=== PATIENT | male | born 2000 | race American Indian/Alaskan Native ===

== ENCOUNTER 2020-04-27 07:42 | Inpatient (IN) | payer OTHER ==
[2020-04-27] MEDS ORDERED: Morphine 4 MG/ML Syringe IVPUSH ONE (07:49)
[2020-04-27] MEDS ORDERED: Sodium Chloride 0.9% 2.5 ML Syringe FLUSH PRN (07:49)
[2020-04-27] MEDS ORDERED: Sodium Chloride 0.9% 1,000 ML IV ONE (07:49)
[2020-04-27] MEDS ORDERED: Sodium Chloride 0.9% 10 ML Syringe FLUSH PRN (07:49)
[2020-04-27] MEDS ORDERED: Ondansetron 4 MG/2 ML SDV IVPUSH ONE (07:49)
--- NOTE | 2020-04-27 07:57 | EDM.PDOC ---
ED HPI GENERAL MEDICAL PROBLEM - General Chief Complaint: Abdominal Pain Stated Complaint: ABDOMINAL PAIN Time Seen by Provider: 04/27/20 07:43 Source of Information: Reports: Patient History Limitations: Reports: No Limitations - History of Present Illness INITIAL COMMENTS - FREE TEXT/NARRATIVE: 20-year-old male presents with abdominal pain. Abdominal pain is localized to the right lower quadrant, constant for 2 days but worsening today, nonradiating, sharp, no alleviating or exacerbating factors, associated with nausea, vomiting, worse with food. Denies fever, chills, chest pain, shortness of breath, suicidality or homicidality at this point. 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 He also overdosed on 15 tablets of anti- inflammatory medication 3 days ago, he has an appointment at [facility] today at 1 PM. He currently denies suicidal ideation. ROS: A 10-point review of systems, other than pertinent positives and negatives as stated per HPI, is otherwise negative Past medical history: No additional pertinent history Past Surgical history: No additional pertinent history Social history: No additional pertinent history Family history: No additional pertinent history PHYSICAL EXAM General: AOx4, GCS = 15, No distress HEENT: dry mucous membrane Neck: supple, no meningismus, no Kernig or Brudzinski Cardiac: S1S2 RRR Respiratory: CTAB, no crackles or rales, no wheezing Abdomen: Soft, RLQ tender, no rebound or guarding, nondistended, no pulsatile mass. Back: nontender Musculoskeletal: NVI distally, no deformity Neuro: No focal deficits, CN 2 - 12 WNL. Psych: flat affect, no SI, HI, AH,VH right lower abdomen Pain Score (Numeric/FACES): 9 - Related Data Allergies Allergy/AdvReac Type Severity Reaction Status Date / Time No Known Allergies Allergy Verified 04/27/20 07:52 Home Meds: Home Meds . [No Known Home Meds] 04/27/20 [History] ED ROS GENERAL - Review of Systems Review Of Systems: See Below (see dictation) ED EXAM, GENERAL - Physical Exam Exam: See Below (see dictation) ED GENERAL MEDICAL PROCEDURES - Additional/Other Procedure(s) Other (Free Text) Procedure(s): Bladder ultrasound Indication: Evaluation for urinary retention Notes: Suprapubic transverse and sagittal views were obtained Findings:- Bladder dimensions 15*10cm, Estimated bladder volume 1.5L, No pelvic free fluid Impression: Urinary retention Performed and interpreted at the time of patient care, scan image(s) archived. Certified by Gael Morrissey MD Course - Vital Signs Last Recorded V/S: Last Vital Signs Temp 97.1 F 04/27/20 07:52 Pulse 77 04/27/20 07:52 Resp 20 04/27/20 07:52 BP 132/97 H 04/27/20 07:52 Pulse Ox 96 04/27/20 07:52 - Orders/Labs/Meds Orders: Active Orders 24 hr Category Date Time Status Insert Walker Catheter [Insert Urinary Catheter] [OM.PC] Care 04/27/20 10:30 Ordered Q24H Urinary Catheter Assessment [RC] ASDIRECTED Care 04/27/20 10:22 Ordered Sodium Chloride 0.9% [Saline Flush] Med 04/27/20 07:49 Active 10 ml FLUSH ASDIRECTED PRN Sodium Chloride 0.9% [Saline Flush] Med 04/27/20 07:49 Active 2.5 ml FLUSH ASDIRECTED PRN Saline Lock Insert [OM.PC] Stat Oth 04/27/20 07:50 Ordered Medication Orders Sodium Chloride (Saline Flush) 10 ml FLUSH ASDIRECTED PRN PRN Reason: Keep Vein Open Last Admin: 04/27/20 08:14 Dose: 10 ml Documented by: CLAUDE Sodium Chloride (Saline Flush) 2.5 ml FLUSH ASDIRECTED PRN PRN Reason: Keep Vein Open Last Admin: 04/27/20 08:14 Dose: 2.5 ml Documented by: CLAUDE Labs: Laboratory Tests 04/27/20 04/27/20 04/27/20 Range/Units 08:12 08:13 08:18 WBC 10.86 (4.0-11.0) K/uL RBC 5.06 (4.50-5.90) M/uL Hgb 15.4 (13.0-17.0) g/dL Hct 44.4 (38.0-50.0) % MCV 87.7 (80.0-98.0) fL MCH 30.4 (27.0-32.0) pg MCHC 34.7 (31.0-37.0) g/dL RDW Std Deviation 39.7 (28.0-62.0) fl RDW Coeff of Cristina 13 (11.0-15.0) % Plt Count 181 (150-400) K/uL MPV 11.40 (7.40-12.00) fL Neut % (Auto) 68.8 (48.0-80.0) % Lymph % (Auto) 14.9 L (16.0-40.0) % [place] % (Auto) 15.6 H (0.0-15.0) % Eos % (Auto) 0.3 (0.0-7.0) % Baso % (Auto) 0.4 (0.0-1.5) % Neut # (Auto) 7.5 H (1.4-5.7) K/uL Lymph # (Auto) 1.6 (0.6-2.4) K/uL [place] # (Auto) 1.7 H (0.0-0.8) K/uL Eos # (Auto) 0.0 (0.0-0.7) K/uL Baso # (Auto) 0.0 (0.0-0.1) K/uL Nucleated RBC % 0.0 /100WBC Nucleated RBCs # 0 K/uL Lactate 1.0 (0.20-2.00) mmol/L Sodium (136-148) mmol/L Potassium (3.5-5.1) mmol/L Chloride (98-107) mmol/L Carbon Dioxide (21.0-32.0) mmol/L BUN (7.0-18.0) mg/dL Creatinine (0.8-1.3) mg/dL Est Cr Clr Drug Dosing mL/min Estimated GFR (MDRD) ml/min Glucose (74-106) mg/dL Calcium (8.5-10.1) mg/dL Total Bilirubin (0.2-1.0) mg/dL AST (15-37) IU/L ALT (14-63) IU/L Alkaline Phosphatase (46-116) U/L Total Protein (6.4-8.2) g/dL Albumin (3.4-5.0) g/dL Globulin (2.6-4.0) g/dL Albumin/Globulin Ratio (0.9-1.6) Lipase (73-393) U/L Salicylates (0-20) mg/dL Urine Opiates Screen NEGATIVE (NEGATIVE) Ur Oxycodone Screen NEGATIVE (NEGATIVE) Urine Methadone Screen NEGATIVE (NEGATIVE) Acetaminophen ug/mL Ur Barbiturates Screen NEGATIVE (NEGATIVE) Ur Phencyclidine Scrn NEGATIVE (NEGATIVE) Ur Amphetamine Screen NEGATIVE (NEGATIVE) U Methamphetamines Scrn NEGATIVE (NEGATIVE) U Benzodiazepines Scrn NEGATIVE (NEGATIVE) U Cocaine Metab Screen NEGATIVE (NEGATIVE) U Marijuana (THC) Screen POSITIVE (NEGATIVE) SARS-CoV-2 RNA (MYLES) (NEGATIVE) 04/27/20 04/27/20 04/27/20 Range/Units 08:18 08:18 08:18 WBC (4.0-11.0) K/uL RBC (4.50-5.90) M/uL Hgb (13.0-17.0) g/dL Hct (38.0-50.0) % MCV (80.0-98.0) fL MCH (27.0-32.0) pg MCHC (31.0-37.0) g/dL RDW Std Deviation (28.0-62.0) fl RDW Coeff of Cristina (11.0-15.0) % Plt Count (150-400) K/uL MPV (7.40-12.00) fL Neut % (Auto) (48.0-80.0) % Lymph % (Auto) (16.0-40.0) % [place] % (Auto) (0.0-15.0) % Eos % (Auto) (0.0-7.0) % Baso % (Auto) (0.0-1.5) % Neut # (Auto) (1.4-5.7) K/uL Lymph # (Auto) (0.6-2.4) K/uL [place] # (Auto) (0.0-0.8) K/uL Eos # (Auto) (0.0-0.7) K/uL Baso # (Auto) (0.0-0.1) K/uL Nucleated RBC % /100WBC Nucleated RBCs # K/uL Lactate (0.20-2.00) mmol/L Sodium 141 (136-148) mmol/L Potassium 3.6 (3.5-5.1) mmol/L Chloride 104 (98-107) mmol/L Carbon Dioxide 26.5 (21.0-32.0) mmol/L BUN 21 H (7.0-18.0) mg/dL Creatinine 2.0 H (0.8-1.3) mg/dL Est Cr Clr Drug Dosing 63.59 mL/min Estimated GFR (MDRD) 42.0 ml/min Glucose 106 (74-106) mg/dL Calcium 9.2 (8.5-10.1) mg/dL Total Bilirubin 1.3 H (0.2-1.0) mg/dL AST 16 (15-37) IU/L ALT 39 (14-63) IU/L Alkaline Phosphatase 56 (46-116) U/L Total Protein 8.1 (6.4-8.2) g/dL Albumin 4.0 (3.4-5.0) g/dL Globulin 4.1 H (2.6-4.0) g/dL Albumin/Globulin Ratio 1.0 (0.9-1.6) Lipase 65 L (73-393) U/L Salicylates 0.4 (0-20) mg/dL Urine Opiates Screen (NEGATIVE) Ur Oxycodone Screen (NEGATIVE) Urine Methadone Screen (NEGATIVE) Acetaminophen <2.0 ug/mL Ur Barbiturates Screen (NEGATIVE) Ur Phencyclidine Scrn (NEGATIVE) Ur Amphetamine Screen (NEGATIVE) U Methamphetamines Scrn (NEGATIVE) U Benzodiazepines Scrn (NEGATIVE) U Cocaine Metab Screen (NEGATIVE) U Marijuana (THC) Screen (NEGATIVE) SARS-CoV-2 RNA (MYLES) (NEGATIVE) 04/27/20 Range/Units 09:08 WBC (4.0-11.0) K/uL RBC (4.50-5.90) M/uL Hgb (13.0-17.0) g/dL Hct (38.0-50.0) % MCV (80.0-98.0) fL MCH (27.0-32.0) pg MCHC (31.0-37.0) g/dL RDW Std Deviation (28.0-62.0) fl RDW Coeff of Cristina (11.0-15.0) % Plt Count (150-400) K/uL MPV (7.40-12.00) fL Neut % (Auto) (48.0-80.0) % Lymph % (Auto) (16.0-40.0) % [place] % (Auto) (0.0-15.0) % Eos % (Auto) (0.0-7.0) % Baso % (Auto) (0.0-1.5) % Neut # (Auto) (1.4-5.7) K/uL Lymph # (Auto) (0.6-2.4) K/uL [place] # (Auto) (0.0-0.8) K/uL Eos # (Auto) (0.0-0.7) K/uL Baso # (Auto) (0.0-0.1) K/uL Nucleated RBC % /100WBC Nucleated RBCs # K/uL Lactate (0.20-2.00) mmol/L Sodium (136-148) mmol/L Potassium (3.5-5.1) mmol/L Chloride (98-107) mmol/L Carbon Dioxide (21.0-32.0) mmol/L BUN (7.0-18.0) mg/dL Creatinine (0.8-1.3) mg/dL Est Cr Clr Drug Dosing mL/min Estimated GFR (MDRD) ml/min Glucose (74-106) mg/dL Calcium (8.5-10.1) mg/dL Total Bilirubin (0.2-1.0) mg/dL AST (15-37) IU/L ALT (14-63) IU/L Alkaline Phosphatase (46-116) U/L Total Protein (6.4-8.2) g/dL Albumin (3.4-5.0) g/dL Globulin (2.6-4.0) g/dL Albumin/Globulin Ratio (0.9-1.6) Lipase (73-393) U/L Salicylates (0-20) mg/dL Urine Opiates Screen (NEGATIVE) Ur Oxycodone Screen (NEGATIVE) Urine Methadone Screen (NEGATIVE) Acetaminophen ug/mL Ur Barbiturates Screen (NEGATIVE) Ur Phencyclidine Scrn (NEGATIVE) Ur Amphetamine Screen (NEGATIVE) U Methamphetamines Scrn (NEGATIVE) U Benzodiazepines Scrn (NEGATIVE) U Cocaine Metab Screen (NEGATIVE) U Marijuana (THC) Screen (NEGATIVE) SARS-CoV-2 RNA (MYLES) NEGATIVE (NEGATIVE) Meds: Medications Generic Name Dose Route Start Last Admin Trade Name Freq PRN Reason Stop Dose Admin Sodium Chloride 10 ml 04/27/20 07:49 04/27/20 08:14 Saline Flush FLUSH 10 ml ASDIRECTED PRN Administration Keep Vein Open Sodium Chloride 2.5 ml 04/27/20 07:49 04/27/20 08:14 Saline Flush FLUSH 2.5 ml ASDIRECTED PRN Administration Keep Vein Open Discontinued Medications Generic Name Dose Route Start Last Admin Trade Name Freq PRN Reason Stop Dose Admin Sodium Chloride 1,000 mls @ 999 mls/hr 04/27/20 07:49 04/27/20 08:14 Normal Saline IV 04/27/20 08:49 999 mls/hr .Bolus ONE Administration Morphine Sulfate 4 mg 04/27/20 07:49 04/27/20 08:14 Morphine IVPUSH 04/27/20 07:50 4 mg ONETIME ONE Administration Ondansetron HCl 4 mg 04/27/20 07:49 04/27/20 08:14 Zofran IVPUSH 04/27/20 07:50 4 mg ONETIME ONE Administration - Re-Assessments/Exams Free Text/Narrative Re-Assessment/Exam: 04/27/20 10:[address] Lyman, who agrees to admit patient. The hospitalist's documentation supersedes all other documentation on this patient with regard to any conflicts or discrepancies from this point forward. Any emergency conditions have been treated to the ability of the ED prior to admission. MEDICAL DECISION MAKING: I reviewed the patients past medical records, lab and radiographic findings. I discussed the case with the patient. My differential diagnosis included: Appendicitis, colitis, suicidal ideation. Patient overdosed on anti-inflammatory medication 15 tablets 3 days ago, he was feeling depressed. Currently he denies suicidal ideation, he has no plans of killing himself or other people, he has no hallucinations. He presented with a chief complaint of right lower quadrant abdominal pain today, he had no fever or leukocytosis or tachycardia to suggest for significant infectious etiology. CT was performed without contrast and had good visualization of his appendix, which did not suggest appendicitis. He had no testicular pain. I do not suspect testicular torsion. Will admit for renal insufficiency likely secondary to NSAID overdose, and for serial abdominal exam for his right lower quadrant pain despite negative CT. Departure - Departure Time of Disposition: 10:37 Disposition: Refer to Observation Condition: Good Clinical Impression: Abdominal pain, ATN (acute tubular necrosis), NSAID overdose - Discharge Information *PRESCRIPTION DRUG MONITORING PROGRAM REVIEWED*: Not Applicable *COPY OF PRESCRIPTION DRUG MONITORING REPORT IN PATIENT ANDREEA: Not Applicable Referrals: [facility],[place] [Primary Care Provider] - Forms: ED Department Discharge Sepsis Event Note (ED) - Focused Exam Vital Signs: Vital Signs Temp Pulse Resp BP Pulse Ox 04/27/20 07:52 97.1 F 77 20 132/97 H 96 - My Orders Last 24 Hours: My Active Orders 04/27/20 07:49 Sodium Chloride 0.9% [Saline Flush] 10 ml FLUSH ASDIRECTED PRN Sodium Chloride 0.9% [Saline Flush] 2.5 ml FLUSH ASDIRECTED PRN 04/27/20 07:50 Saline Lock Insert [OM.PC] Stat 04/27/20 10:22 Urinary Catheter Assessment [RC] ASDIRECTED 04/27/20 10:30 Insert Walker Catheter [Insert Urinary Catheter] [OM.PC] Q24H - Assessment/Plan Last 24 Hours: My Active Orders 04/27/20 07:49 Sodium Chloride 0.9% [Saline Flush] 10 ml FLUSH ASDIRECTED PRN Sodium Chloride 0.9% [Saline Flush] 2.5 ml FLUSH ASDIRECTED PRN 04/27/20 07:50 Saline Lock Insert [OM.PC] Stat 04/27/20 10:22 Urinary Catheter Assessment [RC] ASDIRECTED 04/27/20 10:30 Insert Walker Catheter [Insert Urinary Catheter] [OM.PC] Q24H
[2020-04-27 08:52] LABS: ACETAMINOPHEN <2.0 ug/mL
[2020-04-27 08:53] LABS: CARBON DIOXIDE,CO2 26.5 mmol/L (21.0-32.0); POTASSIUM,K 3.6 mmol/L (3.5-5.1)
--- NOTE | 2020-04-27 09:52 | CT ---
INDICATION: Right lower quadrant abdominal pain COMPARISON: None TECHNIQUE: CT examination of the abdomen and pelvis was performed without intravenous contrast. Thin section axial images were obtained from the lung bases through the pubic symphysis. Oral contrast was not administered. Please note that all CT scans at this facility use dose modulation, iterative reconstruction, and/or weight-based dosing when appropriate to reduce radiation dose to as low as reasonably achievable. FINDINGS: LUNG BASES: The lung bases as visualized appear normal.The heart size is normal at the lung bases. LIVER/BILIARY SYSTEM:The liver is normal in size and configuration given the lack of intravenous contrast. There is no visible focal mass and there is no intra- or extra hepatic biliary ductal dilatation.The gall bladder appears normal. ADRENALS: Normal non-contrast appearance KIDNEYS, URETERS and BLADDER:The kidneys appear normal given lack of intravenous contrast. No visible mass, calculus or hydronephrosis. The ureters and bladder as visualized appear normal. SPLEEN:Normal non-contrast appearance. PANCREAS: Normal non-contrast appearance. RETROPERITONEUM and MESENTERY: There is no mass, adenopathy or aortic aneurysm. GASTROINTESTINAL SYSTEM: There is no evidence of diverticulitis, colitis, mechanical obstruction, or appendicitis. The small bowel as visualized appears normal. PELVIS: No mass, adenopathy or free fluid. OSSEOUS STRUCTURES and ABDOMINAL WALL: There is an age-appropriate appearance of the osseous structures.No significant abdominal wall defect. OTHER: No free fluid or free air. IMPRESSION: No visible etiology for right lower quadrant abdominal pain. No calcified calculus. No evidence of current or recent obstructive uropathy. Appendix was seen and appears normal. No visible right lower quadrant inflammatory process. Please note that all CT scans at this facility use dose modulation, iterative reconstruction, and/or weight-based dosing when appropriate to reduce radiation dose to as low as reasonably achievable. Dictated by Kj Tellez MD @ Apr 27 2020 9:45AM Signed by Dr. Kj Tellez @ Apr 27 2020 9:51AM
[2020-04-27] MEDS ORDERED: Morphine 10 MG/ML Syringe IVPUSH PRN (11:48)
[2020-04-27] MEDS ORDERED: Albuterol/Ipratropium 3.0-0.5 MG/3 ML Neb Soln NEB PRN (11:48)
--- NOTE | 2020-04-27 12:08 | PCM.HP.2 ---
H&P History of Present Illness - General Date of Service: 04/27/20 Admit Problem/Dx: Admission Diagnosis/Problem Admission Diagnosis/Problem Acute tubular necrosis - History of Present Illness Initial Comments - Free Text/Narative: Patient is 20 y/o M with PMH of undiagnosed mood disorder, who comes in with generalized abdominal pain, N/V since yesterday, Patient states that he overdosed on anti-inflammatory medication 15 tablets 3 days ago, as he was feeling depressed. He also admits to using meth and marijuana. Currently he denies suicidal ideation, he has no plans of killing himself or other people, he has no hallucinations. CT abdomen was performed without contrast and had good visualization of his appendix, which did not suggest appendicitis. Labs reveled PARAMJIT with creatinine of 2.0. Patient was admitted for renal insufficiency likely secondary to NSAID overdose. Patient states that he has an appointment at a psychiatry clinic at [facility] for his mood disorder. He states he has episodes of extremely elevated mood followed by depressive episodes. States being sober brings his depressive thoughts and thats why he abuses drugs. right lower abdomen Pain Score (Numeric/FACES): 9 - Related Data Allergies/Adverse Reactions: Allergies Allergy/AdvReac Type Severity Reaction Status Date / Time No Known Allergies Allergy Verified 04/27/20 12:59 Home Medications: Home Meds . [No Known Home Meds] 04/27/20 [History] Past Medical History - Past Health History Medical/Surgical History: Denies Medical/Surgical History - Infectious Disease History Infectious Disease History: Reports: None Social & Family History - Family History Family Medical History: No Pertinent Family History - Tobacco Use Tobacco Use Status *Q: Current Every Day Tobacco User Years of Tobacco use: 6 Packs/Tins Daily: 1 - Caffeine Use Caffeine Use: Reports: None - Recreational Drug Use Recreational Drug Use: Yes Recreational Drug Type: Reports: Marijuana/Hashish Recreational Drug Use Frequency: Socially H&P Review of Systems - Review of Systems: Review Of Systems: See Below General: Reports: Malaise, Weakness, Fatigue. Denies: Fever, Chills Pulmonary: Denies: Shortness of Breath, Wheezing Cardiovascular: Denies: Chest Pain, Palpitations, Dyspnea on Exertion Gastrointestinal: Reports: Abdominal Pain, Anorexia, Decreased Appetite, Nausea, Vomiting. Denies: Black Stool, Bloody Stool, Constipation, Diarrhea, Distension, Hematemesis, Hematochezia, Melena, Mucous in Stool Genitourinary: Denies: Dysuria, Frequency, Pain, Urgency Musculoskeletal: Denies: Neck Pain, Shoulder Pain, Arm Pain Skin: Denies: Cyanosis, Jaundice, Mottled Psychiatric: Reports: Mood Lability. Denies: Suicidal Ideation, Homicidal Ideation, Hallucinations (Auditory) Neurological: Denies: Confusion, Dizziness, Headache Exam - Exam Exam: See Below - Vital Signs Vital Signs: Last Vital Signs Temp 36.2 C 04/27/20 07:52 Pulse 77 04/27/20 07:52 Resp 20 04/27/20 07:52 BP 132/97 H 04/27/20 07:52 Pulse Ox 96 04/27/20 07:52 Weight: 86.183 kg - Exam General: Alert, Oriented, Cooperative Neck: Supple, Trachea Midline Lungs: Clear to Auscultation, Normal Respiratory Effort Cardiovascular: Regular Rate, Regular Rhythm, Normal S1, Normal S2 GI/Abdominal Exam: Normal Bowel Sounds, Soft, Tender. No: Hepatomegaly, Splenomegaly - Patient Data Lab Results Last 24 hrs: Laboratory Results - last 24 hr 04/27/20 04/27/20 04/27/20 Range/Units 08:12 08:13 08:18 WBC 10.86 (4.0-11.0) K/uL RBC 5.06 (4.50-5.90) M/uL Hgb 15.4 (13.0-17.0) g/dL Hct 44.4 (38.0-50.0) % MCV 87.7 (80.0-98.0) fL MCH 30.4 (27.0-32.0) pg MCHC 34.7 (31.0-37.0) g/dL RDW Std Deviation 39.7 (28.0-62.0) fl RDW Coeff of Cristina 13 (11.0-15.0) % Plt Count 181 (150-400) K/uL MPV 11.40 (7.40-12.00) fL Neut % (Auto) 68.8 (48.0-80.0) % Lymph % (Auto) 14.9 L (16.0-40.0) % [place] % (Auto) 15.6 H (0.0-15.0) % Eos % (Auto) 0.3 (0.0-7.0) % Baso % (Auto) 0.4 (0.0-1.5) % Neut # (Auto) 7.5 H (1.4-5.7) K/uL Lymph # (Auto) 1.6 (0.6-2.4) K/uL [place] # (Auto) 1.7 H (0.0-0.8) K/uL Eos # (Auto) 0.0 (0.0-0.7) K/uL Baso # (Auto) 0.0 (0.0-0.1) K/uL Nucleated RBC % 0.0 /100WBC Nucleated RBCs # 0 K/uL Lactate 1.0 (0.20-2.00) mmol/L Sodium (136-148) mmol/L Potassium (3.5-5.1) mmol/L Chloride (98-107) mmol/L Carbon Dioxide (21.0-32.0) mmol/L BUN (7.0-18.0) mg/dL Creatinine (0.8-1.3) mg/dL Est Cr Clr Drug Dosing mL/min Estimated GFR (MDRD) ml/min Glucose (74-106) mg/dL Calcium (8.5-10.1) mg/dL Total Bilirubin (0.2-1.0) mg/dL AST (15-37) IU/L ALT (14-63) IU/L Alkaline Phosphatase (46-116) U/L Total Protein (6.4-8.2) g/dL Albumin (3.4-5.0) g/dL Globulin (2.6-4.0) g/dL Albumin/Globulin Ratio (0.9-1.6) Lipase (73-393) U/L Salicylates (0-20) mg/dL Urine Opiates Screen NEGATIVE (NEGATIVE) Ur Oxycodone Screen NEGATIVE (NEGATIVE) Urine Methadone Screen NEGATIVE (NEGATIVE) Acetaminophen ug/mL Ur Barbiturates Screen NEGATIVE (NEGATIVE) Ur Phencyclidine Scrn NEGATIVE (NEGATIVE) Ur Amphetamine Screen NEGATIVE (NEGATIVE) U Methamphetamines Scrn NEGATIVE (NEGATIVE) U Benzodiazepines Scrn NEGATIVE (NEGATIVE) U Cocaine Metab Screen NEGATIVE (NEGATIVE) U Marijuana (THC) Screen POSITIVE (NEGATIVE) SARS-CoV-2 RNA (MYLES) (NEGATIVE) 02/07/1204/27/20 04/27/20 Range/Units 08:18 08:18 08:18 WBC (4.0-11.0) K/uL RBC (4.50-5.90) M/uL Hgb (13.0-17.0) g/dL Hct (38.0-50.0) % MCV (80.0-98.0) fL MCH (27.0-32.0) pg MCHC (31.0-37.0) g/dL RDW Std Deviation (28.0-62.0) fl RDW Coeff of Cristina (11.0-15.0) % Plt Count (150-400) K/uL MPV (7.40-12.00) fL Neut % (Auto) (48.0-80.0) % Lymph % (Auto) (16.0-40.0) % [place] % (Auto) (0.0-15.0) % Eos % (Auto) (0.0-7.0) % Baso % (Auto) (0.0-1.5) % Neut # (Auto) (1.4-5.7) K/uL Lymph # (Auto) (0.6-2.4) K/uL [place] # (Auto) (0.0-0.8) K/uL Eos # (Auto) (0.0-0.7) K/uL Baso # (Auto) (0.0-0.1) K/uL Nucleated RBC % /100WBC Nucleated RBCs # K/uL Lactate (0.20-2.00) mmol/L Sodium 141 (136-148) mmol/L Potassium 3.6 (3.5-5.1) mmol/L Chloride 104 (98-107) mmol/L Carbon Dioxide 26.5 (21.0-32.0) mmol/L BUN 21 H (7.0-18.0) mg/dL Creatinine 2.0 H (0.8-1.3) mg/dL Est Cr Clr Drug Dosing 63.59 mL/min Estimated GFR (MDRD) 42.0 ml/min Glucose 106 (74-106) mg/dL Calcium 9.2 (8.5-10.1) mg/dL Total Bilirubin 1.3 H (0.2-1.0) mg/dL AST 16 (15-37) IU/L ALT 39 (14-63) IU/L Alkaline Phosphatase 56 (46-116) U/L Total Protein 8.1 (6.4-8.2) g/dL Albumin 4.0 (3.4-5.0) g/dL Globulin 4.1 H (2.6-4.0) g/dL Albumin/Globulin Ratio 1.0 (0.9-1.6) Lipase 65 L (73-393) U/L Salicylates 0.4 (0-20) mg/dL Urine Opiates Screen (NEGATIVE) Ur Oxycodone Screen (NEGATIVE) Urine Methadone Screen (NEGATIVE) Acetaminophen <2.0 ug/mL Ur Barbiturates Screen (NEGATIVE) Ur Phencyclidine Scrn (NEGATIVE) Ur Amphetamine Screen (NEGATIVE) U Methamphetamines Scrn (NEGATIVE) U Benzodiazepines Scrn (NEGATIVE) U Cocaine Metab Screen (NEGATIVE) U Marijuana (THC) Screen (NEGATIVE) SARS-CoV-2 RNA (MYLES) (NEGATIVE) 04/27/20 Range/Units 09:08 WBC (4.0-11.0) K/uL RBC (4.50-5.90) M/uL Hgb (13.0-17.0) g/dL Hct (38.0-50.0) % MCV (80.0-98.0) fL MCH (27.0-32.0) pg MCHC (31.0-37.0) g/dL RDW Std Deviation (28.0-62.0) fl RDW Coeff of Cristina (11.0-15.0) % Plt Count (150-400) K/uL MPV (7.40-12.00) fL Neut % (Auto) (48.0-80.0) % Lymph % (Auto) (16.0-40.0) % [place] % (Auto) (0.0-15.0) % Eos % (Auto) (0.0-7.0) % Baso % (Auto) (0.0-1.5) % Neut # (Auto) (1.4-5.7) K/uL Lymph # (Auto) (0.6-2.4) K/uL [place] # (Auto) (0.0-0.8) K/uL Eos # (Auto) (0.0-0.7) K/uL Baso # (Auto) (0.0-0.1) K/uL Nucleated RBC % /100WBC Nucleated RBCs # K/uL Lactate (0.20-2.00) mmol/L Sodium (136-148) mmol/L Potassium (3.5-5.1) mmol/L Chloride (98-107) mmol/L Carbon Dioxide (21.0-32.0) mmol/L BUN (7.0-18.0) mg/dL Creatinine (0.8-1.3) mg/dL Est Cr Clr Drug Dosing mL/min Estimated GFR (MDRD) ml/min Glucose (74-106) mg/dL Calcium (8.5-10.1) mg/dL Total Bilirubin (0.2-1.0) mg/dL AST (15-37) IU/L ALT (14-63) IU/L Alkaline Phosphatase (46-116) U/L Total Protein (6.4-8.2) g/dL Albumin (3.4-5.0) g/dL Globulin (2.6-4.0) g/dL Albumin/Globulin Ratio (0.9-1.6) Lipase (73-393) U/L Salicylates (0-20) mg/dL Urine Opiates Screen (NEGATIVE) Ur Oxycodone Screen (NEGATIVE) Urine Methadone Screen (NEGATIVE) Acetaminophen ug/mL Ur Barbiturates Screen (NEGATIVE) Ur Phencyclidine Scrn (NEGATIVE) Ur Amphetamine Screen (NEGATIVE) U Methamphetamines Scrn (NEGATIVE) U Benzodiazepines Scrn (NEGATIVE) U Cocaine Metab Screen (NEGATIVE) U Marijuana (THC) Screen (NEGATIVE) SARS-CoV-2 RNA (MYLES) NEGATIVE (NEGATIVE) Result Diagrams: 04/27/20 08:13 04/27/20 08:18 Sepsis Event Note - Evaluation Sepsis Screening Result: No Definite Risk - Focused Exam Vital Signs: Vital Signs Temp Pulse Resp BP Pulse Ox 04/27/20 07:52 36.2 C 77 20 132/97 H 96 - Problem List (1) ATN (acute tubular necrosis) SNOMED Code(s): 19329348 ICD Code: N17.0 - ACUTE KIDNEY FAILURE WITH TUBULAR NECROSIS Status: Acute Current Visit: Yes (2) Abdominal pain SNOMED Code(s): 67795655 ICD Code: R10.9 - UNSPECIFIED ABDOMINAL PAIN Status: Acute Current Visit: Yes (3) NSAID overdose SNOMED Code(s): 330290093 ICD Code: T39.391A - POISONING BY OTH NONSTEROID ANTI-INFLAM DRUGS, ACC, INIT Status: Acute Current Visit: Yes Problem List Initiated/Reviewed/Updated: Yes Orders Last 24hrs: Active Orders 24 hr Category Date Time Status Patient Status [ADT] Routine ADT 04/27/20 11:39 Active Antiembolic Devices [RC] PER UNIT ROUTINE Care 04/27/20 11:48 Active Oxygen Therapy [RC] PRN Care 04/27/20 11:44 Active Pulse Oximetry [RC] PRN Care 04/27/20 11:46 Active RT Aerosol Therapy [RC] ASDIRECTED Care 04/27/20 11:49 Active VTE/DVT Education [RC] PER UNIT ROUTINE Care 04/27/20 11:44 Active Vital Signs [RC] Q4H Care 04/27/20 11:44 Active Regular Diet [DIET] Diet 04/27/20 Lunch Active BMP [BASIC METABOLIC PANEL,BMP] [CHEM] AM Lab 04/28/20 05:11 Ordered CBC WITH AUTO DIFF [HEME] AM Lab 04/28/20 05:11 Ordered CREATININE,URINE RAND [URCHEM] Routine Lab 04/27/20 11:49 Ordered ELECTROLYTES,URINE RANDOM [URCHEM] Routine Lab 04/27/20 11:49 Ordered MAGNESIUM [CHEM] AM Lab 04/28/20 05:11 Ordered PHOSPHORUS [CHEM] AM Lab 04/28/20 05:11 Ordered Acetaminophen [TylenoL] Med 04/27/20 11:48 Active 650 mg PO Q4H PRN Albuterol/Ipratropium [DuoNeb 3.0-0.5 MG/3 ML] Med 04/27/20 11:48 Active 3 ml NEB Q4HRRT PRN Lactated Ringers [Ringers, Lactated] 1,000 ml Med 04/27/20 11:45 Active IV ASDIRECTED Morphine Med 04/27/20 11:48 Active 2 mg IVPUSH Q3H PRN Sodium Chloride 0.9% [Saline Flush] Med 04/27/20 07:49 Active 10 ml FLUSH ASDIRECTED PRN Sodium Chloride 0.9% [Saline Flush] Med 04/27/20 07:49 Active 2.5 ml FLUSH ASDIRECTED PRN Saline Lock Insert [OM.PC] Stat Oth 04/27/20 07:50 Ordered Sequential Compression Device [OM.PC] Per Unit Routine Oth 04/27/20 11:48 Ordered Resuscitation Status Routine Resus Stat 04/27/20 11:44 Ordered Medication Orders Acetaminophen (Tylenol) 650 mg PO Q4H PRN PRN Reason: Pain (Mild 1-3)/fever Albuterol/Ipratropium (Duoneb 3.0-0.5 Mg/3 Ml) 3 ml NEB Q4HRRT PRN PRN Reason: Shortness Of Breath/wheezing Lactated Ringer's (Ringers, Lactated) 1,000 mls @ 200 mls/hr IV ASDIRECTED MAUREEN Morphine Sulfate (Morphine) 2 mg IVPUSH Q3H PRN PRN Reason: Pain (severe 7-10) Stop: 04/28/20 11:49 Sodium Chloride (Saline Flush) 10 ml FLUSH ASDIRECTED PRN PRN Reason: Keep Vein Open Last Admin: 04/27/20 08:14 Dose: 10 ml Documented by: CLAUDE Sodium Chloride (Saline Flush) 2.5 ml FLUSH ASDIRECTED PRN PRN Reason: Keep Vein Open Last Admin: 04/27/20 08:14 Dose: 2.5 ml Documented by: CLAUDE Assessment/Plan Comment:: 20 y/o M admitted for PARAMJIT likely ATN due to NSAIDS overdose. No concern of active suicidal ideation, no psychosis Check urine electrolytes, urine creatinine Start aggressive IV fluids hydration Zofran for N/V Morphine of pain IV PPI daily Daily BMP
[2020-04-27] MEDS ORDERED: Morphine 2 MG/ML SYRINGE IVPUSH PRN (12:32)
[2020-04-27] MEDS: Lactated Ringers 1,000 ML IV SCH ×2 (12:55→18:01)
[2020-04-27] MEDS ORDERED: HYDROmorphone 1 MG/ML Syringe IVPUSH PRN ×2 (13:11→16:51)
[2020-04-27] MEDS: Pantoprazole 40 MG in Sodium Chloride 0.9% 10 ML IV SCH (13:42)
[2020-04-27] MEDS ORDERED: HYDROmorphone 1 MG/ML Syringe IVPUSH ONE (19:00)
[2020-04-27] MEDS: HYDROmorphone 2 MG/ML Syringe IVPUSH PRN (21:15)
--- NOTE | 2020-04-27 22:56 | US ---
CLINICAL HISTORY: Worsening right lower quadrant abdominal pain COMPARISON: none TECHNIQUE: Real time rivera scale imaging and color Doppler analysis was performed of the abdomen. FINDINGS: Liver: Normal parenchymal echotexture. No suspicious lesions. No intrahepatic biliary dilatation. Common bile duct: Normal caliber measuring up to 4 mm. Gallbladder: No stones or sludge. No wall thickening or pericholecystic fluid. Pancreas: Obscured, precluding assessment. Spleen: Unremarkable where visualized. Nonenlarged, measuring up to 9.7 cm. Vasculature: Normal caliber abdominal aorta where visualized. Patent intrahepatic IVC. Right kidney: Measures 11.5 x 6.9 x 6.3 cm. Increased parenchymal echogenicity, compatible with chronic renal disease. No hydronephrosis. Left kidney: Measures new 11.1 x 6.3 x 5.2 cm. Increased parenchymal echogenicity, compatible with chronic renal disease. No hydronephrosis. Limited scanning was performed in the right lower quadrant. The appendix is not visualized. Impression : 1. Increased echogenicity of the renal parenchyma, consistent with chronic renal disease. No hydronephrosis. 2. Obscured pancreas. Otherwise unremarkable abdominal ultrasound. Dictated by Yoko Ko MD @ Apr 27 2020 10:45PM Signed by Dr. Yoko Ko @ Apr 27 2020 11:00PM
[2020-04-28] MEDS: HYDROmorphone 2 MG/ML Syringe IVPUSH PRN ×2 (00:01→03:25)
[2020-04-28] MEDS: Lactated Ringers 1,000 ML IV SCH ×5 (00:07→20:41)
[2020-04-28 06:13] LABS: CARBON DIOXIDE,CO2 27.6 mmol/L (21.0-32.0); POTASSIUM,K 4.1 mmol/L (3.5-5.1)
[2020-04-28] MEDS: HYDROmorphone 1 MG/ML Syringe IVPUSH PRN ×7 (09:09→23:04)
[2020-04-28] MEDS: Pantoprazole 40 MG in Sodium Chloride 0.9% 10 ML IV SCH (09:53)
[2020-04-28] MEDS: Doxycycline 100 MG Cap PO SCH ×2 (09:58→20:42)
[2020-04-28] MEDS: cefTRIAXone 1 GM in Premix Bag 1 BAG IV SCH (09:58)
--- NOTE | 2020-04-28 11:12 | PCM.PN ---
- General Info Date of Service: 04/28/20 Admission Dx/Problem (Free Text): Admission Diagnosis/Problem Admission Diagnosis/Problem Acute tubular necrosis Subjective Update: COntinues to have pain, but this is improving. No chest pain or SOB. Reports pain is radiating to scrotum. No dysuria or penile drainage. Functional Status: Reports: Pain Controlled, Tolerating Diet, Ambulating, Urinating - Review of Systems General: Reports: No Symptoms. Denies: Weakness, Fatigue, Malaise Pulmonary: Reports: No Symptoms. Denies: Shortness of Breath Cardiovascular: Reports: No Symptoms. Denies: Chest Pain Gastrointestinal: Reports: Abdominal Pain. Denies: Nausea, Vomiting Genitourinary: Reports: Other (scrotal pain) Musculoskeletal: Reports: No Symptoms Skin: Reports: No Symptoms Neurological: Reports: No Symptoms Psychiatric: Reports: No Symptoms - Patient Data Vitals - Most Recent: Last Vital Signs Temp 98.0 F 04/28/20 07:00 Pulse 72 04/28/20 07:00 Resp 18 04/28/20 07:00 BP 142/70 H 04/28/20 07:00 Pulse Ox 97 04/28/20 07:00 Weight - Most Recent: 88.768 kg I&O - Last 24 Hours: Intake & Output 04/27/20 04/28/20 04/28/20 22:59 06:59 14:59 Intake Total 1200 4521 Output Total 925 2575 Balance 275 1946 Lab Results Last 24 Hours: Laboratory Results - last 24 hr 04/27/20 04/28/20 04/28/20 Range/Units 14:10 04:52 04:52 WBC 8.37 (4.0-11.0) K/uL RBC 4.53 (4.50-5.90) M/uL Hgb 13.5 (13.0-17.0) g/dL Hct 40.0 (38.0-50.0) % MCV 88.3 (80.0-98.0) fL MCH 29.8 (27.0-32.0) pg MCHC 33.8 (31.0-37.0) g/dL RDW Std Deviation 40.2 (28.0-62.0) fl RDW Coeff of Cristina 13 (11.0-15.0) % Plt Count 156 (150-400) K/uL MPV 11.80 (7.40-12.00) fL Neut % (Auto) 67.5 (48.0-80.0) % Lymph % (Auto) 16.0 (16.0-40.0) % [place] % (Auto) 15.4 H (0.0-15.0) % Eos % (Auto) 0.7 (0.0-7.0) % Baso % (Auto) 0.4 (0.0-1.5) % Neut # (Auto) 5.7 (1.4-5.7) K/uL Lymph # (Auto) 1.3 (0.6-2.4) K/uL [place] # (Auto) 1.3 H (0.0-0.8) K/uL Eos # (Auto) 0.1 (0.0-0.7) K/uL Baso # (Auto) 0.0 (0.0-0.1) K/uL Nucleated RBC % 0.0 /100WBC Nucleated RBCs # 0 K/uL Sodium 144 (136-148) mmol/L Potassium 4.1 (3.5-5.1) mmol/L Chloride 107 (98-107) mmol/L Carbon Dioxide 27.6 (21.0-32.0) mmol/L BUN 17 (7.0-18.0) mg/dL Creatinine 2.1 H (0.8-1.3) mg/dL Est Cr Clr Drug Dosing 60.56 mL/min Estimated GFR (MDRD) 39.7 ml/min Glucose 95 (74-106) mg/dL Calcium 8.4 L (8.5-10.1) mg/dL Phosphorus 4.4 (2.6-4.7) mg/dL Magnesium 2.1 (1.8-2.4) mg/dL Ur Random Creatinine 44.8 mg/dL Ur Random Sodium 40.0 (40.0-220.0) mmol/L Ur Random Potassium 12.7 mmol/L Ur Random Chloride 48 mmol/L Med Orders - Current: Current Medications Acetaminophen (Tylenol) 650 mg PO Q4H PRN PRN Reason: Pain (Mild 1-3)/fever Albuterol/Ipratropium (Duoneb 3.0-0.5 Mg/3 Ml) 3 ml NEB Q4HRRT PRN PRN Reason: Shortness Of Breath/wheezing Doxycycline Hyclate (Vibramycin) 100 mg PO Q12HR [facility] Last Admin: 04/28/20 09:58 Dose: 100 mg Documented by: Hydromorphone HCl (Dilaudid) 1 mg IVPUSH Q2H PRN PRN Reason: Pain Last Admin: 04/28/20 09:09 Dose: 1 mg Documented by: Lactated Ringer's (Ringers, Lactated) 1,000 mls @ 200 mls/hr IV ASDIRECTED [facility] Last Admin: 04/28/20 09:51 Dose: 200 mls/hr Documented by: Pantoprazole Sodium 40 mg/ (Sodium Chloride) 10 mls @ 300 mls/hr IV DAILY [facility] Last Admin: 04/28/20 09:53 Dose: 300 mls/hr Documented by: Ceftriaxone Sodium/Dextrose 1 (gm/ Premix) 50 mls @ 100 mls/hr IV Q24H [facility] Last Admin: 04/28/20 09:58 Dose: 100 mls/hr Documented by: Ondansetron HCl (Zofran) 4 mg IVPUSH Q4H PRN PRN Reason: Nausea/Vomiting Sodium Chloride (Saline Flush) 10 ml FLUSH ASDIRECTED PRN PRN Reason: Keep Vein Open Last Admin: 04/27/20 08:14 Dose: 10 ml Documented by: Sodium Chloride (Saline Flush) 2.5 ml FLUSH ASDIRECTED PRN PRN Reason: Keep Vein Open Last Admin: 04/27/20 08:14 Dose: 2.5 ml Documented by: Discontinued Medications Hydromorphone HCl (Dilaudid) 1 mg IVPUSH Q4H PRN PRN Reason: Abdominal Pain Last Admin: 04/27/20 13:24 Dose: 1 mg Documented by: Hydromorphone HCl (Dilaudid) 1 mg IVPUSH Q3H PRN PRN Reason: Abdominal Pain Last Admin: 04/27/20 17:08 Dose: 1 mg Documented by: Hydromorphone HCl (Dilaudid) 0.5 mg IVPUSH ONETIME ONE Stop: 04/27/20 19:01 Last Admin: 04/27/20 18:57 Dose: 0.5 mg Documented by: Hydromorphone HCl (Dilaudid) 1 mg IVPUSH Q2H PRN PRN Reason: Pain Last Admin: 04/28/20 03:25 Dose: 1 mg Documented by: Sodium Chloride (Normal Saline) 1,000 mls @ 999 mls/hr IV .Bolus ONE Stop: 04/27/20 08:49 Last Admin: 04/27/20 08:14 Dose: 999 mls/hr Documented by: Morphine Sulfate (Morphine) 4 mg IVPUSH ONETIME ONE Stop: 04/27/20 07:50 Last Admin: 04/27/20 08:14 Dose: 4 mg Documented by: Morphine Sulfate (Morphine) 2 mg IVPUSH Q3H PRN PRN Reason: Pain (severe 7-10) Stop: 04/28/20 11:49 Morphine Sulfate (Morphine) 2 mg IVPUSH Q3H PRN PRN Reason: Pain (severe 7-10) Stop: 04/28/20 11:49 Ondansetron HCl (Zofran) 4 mg IVPUSH ONETIME ONE Stop: 04/27/20 07:50 Last Admin: 04/27/20 08:14 Dose: 4 mg Documented by: - Exam General: Alert, Oriented, Cooperative, No Acute Distress Lungs: Clear to Auscultation, Normal Respiratory Effort Cardiovascular: Regular Rate, Regular Rhythm GI/Abdominal Exam: Normal Bowel Sounds, Soft, Tender (Male) Exam: Scrotum Tenderness (L), Scrotum Tenderness (R) (Pain is relieved with elevation of scrotum). No: Testicular Mass Back Exam: Normal Inspection, Full Range of Motion Extremities: Normal Inspection, Normal Range of Motion, Non-Tender, No Pedal Edema Wound/Incisions: Healing Well Neurological: No New Focal Deficit Psy/Mental Status: Alert, Normal Affect, Normal Mood Sepsis Event Note - Evaluation Sepsis Screening Result: No Definite Risk - Focused Exam Vital Signs: Vital Signs Temp Pulse Resp BP Pulse Ox 04/28/20 07:00 98.0 F 72 18 142/70 H 97 04/28/20 03:28 97.6 F 72 16 134/86 95 04/28/20 00:05 98.4 F 71 16 134/65 96 - Problem List & Annotations (1) ATN (acute tubular necrosis) SNOMED Code(s): 55743785 Code(s): N17.0 - ACUTE KIDNEY FAILURE WITH TUBULAR NECROSIS Status: Acute Current Visit: Yes (2) Abdominal pain SNOMED Code(s): 44895443 Code(s): R10.9 - UNSPECIFIED ABDOMINAL PAIN Status: Acute Current Visit: Yes (3) NSAID overdose SNOMED Code(s): 188412231 Code(s): T39.391A - POISONING BY OTH NONSTEROID ANTI-INFLAM DRUGS, ACC, INIT Status: Acute Current Visit: Yes (4) Epididymitis SNOMED Code(s): 73366188 Code(s): N45.1 - EPIDIDYMITIS Status: Acute Current Visit: Yes - Problem List Review Problem List Initiated/Reviewed/Updated: Yes - My Orders Last 24 Hours: My Active Orders 04/28/20 08:47 Scrotum and Contents [US] Urgent 04/28/20 09:30 Doxycycline [Vibramycin] 100 mg PO Q12HR cefTRIAXone [Rocephin in Dextrose,Iso-Osm 1 GM/50 ML] 1 gm Premix Bag 1 bag IV Q24H - Plan Plan:: 20 y/o M admitted for PARAMJIT likely ATN due to NSAIDS overdose 3 days ago 1. ATN -Creatinine stable -Continue IV fluids -Abdominal pain is better Dilaudid was increased to 1 mg every 2 hours -Monitor BMP in the morning -Renal ultrasound shows bilateral echogenicity within renal parenchyma suggestive of chronic kidney disease. -Avoid nephrotoxic medications 2. Epididymitis -Reporting pain is radiating to scrotum. Patient has tender testicles bilaterally no obvious swelling or mass pain is relieved with elevation -We will start Rocephin 1 g IV and doxycycline 100 mg p.o. twice daily -We will obtain scrotal ultrasound -Add GC onto urine. VTE prophylaxis; SCDs and ambulation CODE STATUS: Full code Dispo: 1 to 2 days pending improvement
--- NOTE | 2020-04-28 12:23 | US ---
INDICATION: Testicular pain TECHNIQUE: Ultrasound of the scrotum and contents. Sonographic rivera scale images were obtained with spectral and color Doppler waveform and spectral waveform analysis of the testicles. COMPARISON: None FINDINGS: Right testicle: 4.7 centimeter x 3.2 centimeter x 2.4 centimeter. Normal echotexture. No masses. No suspicious calcifications. Normal arterial and venous and blood flow using Doppler and spectral waveform analysis. Left testicle: 4.8 centimeter x 3.2 centimeter x 2.4 centimeter. Normal echotexture. No masses. No suspicious calcifications. Normal arterial and venous and blood flow using Doppler and spectral waveform analysis. Epididymis: Unremarkable bilaterally. Normal blood flow. Other: No sign of hydrocele. No sign of varicocele. Scrotal wall is normal. IMPRESSION: Unremarkable ultrasound of the scrotum and contents. Dictated by Gwyn Bullard MD @ Apr 28 2020 12:21PM Signed by Dr. Gwyn Bullard @ Apr 28 2020 12:21PM
[2020-04-28] MEDS: Acetaminophen 325 MG Tab PO PRN ×2 (16:18→23:45)
[2020-04-29] MEDS: Lactated Ringers 1,000 ML IV SCH ×5 (01:53→22:24)
[2020-04-29 06:28] LABS: CARBON DIOXIDE,CO2 29.5 mmol/L (21.0-32.0); POTASSIUM,K 4.3 mmol/L (3.5-5.1)
[2020-04-29] MEDS: Doxycycline 100 MG Cap PO SCH ×2 (09:08→20:54)
[2020-04-29] MEDS: Pantoprazole 40 MG in Sodium Chloride 0.9% 10 ML IV SCH (09:09)
[2020-04-29] MEDS: cefTRIAXone 1 GM in Premix Bag 1 BAG IV SCH (09:11)
[2020-04-29] MEDS: HYDROmorphone 1 MG/ML Syringe IVPUSH PRN ×3 (09:16→22:49)
[2020-04-29] MEDS: Acetaminophen 325 MG Tab PO PRN ×2 (11:47→20:54)
--- NOTE | 2020-04-29 13:34 | PCM.PN ---
- General Info Date of Service: 04/29/20 Admission Dx/Problem (Free Text): Admission Diagnosis/Problem Admission Diagnosis/Problem Acute tubular necrosis Subjective Update: pain is much better, improving. No chest pain or SOB. Reports pain is radiating to scrotum. No dysuria or penile drainage. Functional Status: Reports: Tolerating Diet, Ambulating, Urinating - Review of Systems General: Denies: Fever, Weakness Pulmonary: Denies: Shortness of Breath, Pleuritic Chest Pain Gastrointestinal: Denies: Abdominal Pain, Constipation, Decreased Appetite Genitourinary: Denies: Dysuria, Frequency, Burning Musculoskeletal: Denies: Neck Pain, Shoulder Pain, Arm Pain Skin: Denies: Cyanosis, Jaundice, Mottled Neurological: Denies: Confusion, Dizziness, Headache Psychiatric: Denies: Confusion, Depression - Patient Data Vitals - Most Recent: Last Vital Signs Temp 36.6 C 04/29/20 12:14 Pulse 50 L 04/29/20 12:14 Resp 14 04/29/20 12:14 BP 136/91 H 04/29/20 12:14 Pulse Ox 98 04/29/20 12:14 Weight - Most Recent: 88.768 kg I&O - Last 24 Hours: Intake & Output 04/28/20 04/29/20 04/29/20 22:59 06:59 14:59 Intake Total 500 6237 Output Total 500 Balance 500 5737 Lab Results Last 24 Hours: Laboratory Results - last 24 hr 04/29/20 04/29/20 Range/Units 06:03 06:03 WBC 6.66 (4.0-11.0) K/uL RBC 4.41 L (4.50-5.90) M/uL Hgb 13.2 (13.0-17.0) g/dL Hct 38.8 (38.0-50.0) % MCV 88.0 (80.0-98.0) fL MCH 29.9 (27.0-32.0) pg MCHC 34.0 (31.0-37.0) g/dL RDW Std Deviation 39.3 (28.0-62.0) fl RDW Coeff of Cristina 12 (11.0-15.0) % Plt Count 149 L (150-400) K/uL MPV 11.40 (7.40-12.00) fL Neut % (Auto) 65.7 (48.0-80.0) % Lymph % (Auto) 21.0 (16.0-40.0) % [place] % (Auto) 11.7 (0.0-15.0) % Eos % (Auto) 1.1 (0.0-7.0) % Baso % (Auto) 0.5 (0.0-1.5) % Neut # (Auto) 4.4 (1.4-5.7) K/uL Lymph # (Auto) 1.4 (0.6-2.4) K/uL [place] # (Auto) 0.8 (0.0-0.8) K/uL Eos # (Auto) 0.1 (0.0-0.7) K/uL Baso # (Auto) 0.0 (0.0-0.1) K/uL Nucleated RBC % 0.0 /100WBC Nucleated RBCs # 0 K/uL Sodium 145 (136-148) mmol/L Potassium 4.3 (3.5-5.1) mmol/L Chloride 108 H (98-107) mmol/L Carbon Dioxide 29.5 (21.0-32.0) mmol/L BUN 18 (7.0-18.0) mg/dL Creatinine 2.2 H (0.8-1.3) mg/dL Est Cr Clr Drug Dosing 57.81 mL/min Estimated GFR (MDRD) 37.6 ml/min Glucose 100 (74-106) mg/dL Calcium 8.6 (8.5-10.1) mg/dL Med Orders - Current: Current Medications Acetaminophen (Tylenol) 650 mg PO Q4H PRN PRN Reason: Pain (Mild 1-3)/fever Last Admin: 04/29/20 11:47 Dose: 650 mg Documented by: Albuterol/Ipratropium (Duoneb 3.0-0.5 Mg/3 Ml) 3 ml NEB Q4HRRT PRN PRN Reason: Shortness Of Breath/wheezing Doxycycline Hyclate (Vibramycin) 100 mg PO Q12HR [facility] Last Admin: 04/29/20 09:08 Dose: 100 mg Documented by: Hydromorphone HCl (Dilaudid) 1 mg IVPUSH Q2H PRN PRN Reason: Pain Last Admin: 04/29/20 09:16 Dose: 1 mg Documented by: Lactated Ringer's (Ringers, Lactated) 1,000 mls @ 200 mls/hr IV ASDIRECTED [facility] Last Admin: 04/29/20 11:43 Dose: 200 mls/hr Documented by: Pantoprazole Sodium 40 mg/ (Sodium Chloride) 10 mls @ 300 mls/hr IV DAILY [facility] Last Admin: 04/29/20 09:09 Dose: 300 mls/hr Documented by: Ceftriaxone Sodium/Dextrose 1 (gm/ Premix) 50 mls @ 100 mls/hr IV Q24H [facility] Last Admin: 04/29/20 09:11 Dose: 100 mls/hr Documented by: Ondansetron HCl (Zofran) 4 mg IVPUSH Q4H PRN PRN Reason: Nausea/Vomiting Sodium Chloride (Saline Flush) 10 ml FLUSH ASDIRECTED PRN PRN Reason: Keep Vein Open Last Admin: 04/27/20 08:14 Dose: 10 ml Documented by: Sodium Chloride (Saline Flush) 2.5 ml FLUSH ASDIRECTED PRN PRN Reason: Keep Vein Open Last Admin: 04/27/20 08:14 Dose: 2.5 ml Documented by: Discontinued Medications Hydromorphone HCl (Dilaudid) 1 mg IVPUSH Q4H PRN PRN Reason: Abdominal Pain Last Admin: 04/27/20 13:24 Dose: 1 mg Documented by: Hydromorphone HCl (Dilaudid) 1 mg IVPUSH Q3H PRN PRN Reason: Abdominal Pain Last Admin: 04/27/20 17:08 Dose: 1 mg Documented by: Hydromorphone HCl (Dilaudid) 0.5 mg IVPUSH ONETIME ONE Stop: 04/27/20 19:01 Last Admin: 04/27/20 18:57 Dose: 0.5 mg Documented by: Hydromorphone HCl (Dilaudid) 1 mg IVPUSH Q2H PRN PRN Reason: Pain Last Admin: 04/28/20 03:25 Dose: 1 mg Documented by: Sodium Chloride (Normal Saline) 1,000 mls @ 999 mls/hr IV .Bolus ONE Stop: 04/27/20 08:49 Last Admin: 04/27/20 08:14 Dose: 999 mls/hr Documented by: Morphine Sulfate (Morphine) 4 mg IVPUSH ONETIME ONE Stop: 04/27/20 07:50 Last Admin: 04/27/20 08:14 Dose: 4 mg Documented by: Morphine Sulfate (Morphine) 2 mg IVPUSH Q3H PRN PRN Reason: Pain (severe 7-10) Stop: 04/28/20 11:49 Morphine Sulfate (Morphine) 2 mg IVPUSH Q3H PRN PRN Reason: Pain (severe 7-10) Stop: 04/28/20 11:49 Ondansetron HCl (Zofran) 4 mg IVPUSH ONETIME ONE Stop: 04/27/20 07:50 Last Admin: 04/27/20 08:14 Dose: 4 mg Documented by: - Exam General: Alert, Oriented Lungs: Clear to Auscultation, Normal Respiratory Effort Cardiovascular: Regular Rate, Regular Rhythm GI/Abdominal Exam: Normal Bowel Sounds, Soft, Non-Tender Back Exam: Normal Inspection, Full Range of Motion Peripheral Pulses: 3+: Dorsalis Pedis (L), Dorsalis Pedis (R) Skin: Warm, Dry Sepsis Event Note - Evaluation Sepsis Screening Result: No Definite Risk - Focused Exam Vital Signs: Vital Signs Temp Pulse Resp BP Pulse Ox 04/29/20 12:14 36.6 C 50 L 14 136/91 H 98 04/29/20 09:03 36.6 C 53 L 15 129/80 97 04/29/20 04:00 36.7 C 54 L 16 146/73 H 95 - Problem List & Annotations (1) ATN (acute tubular necrosis) SNOMED Code(s): 72835426 Code(s): N17.0 - ACUTE KIDNEY FAILURE WITH TUBULAR NECROSIS Status: Acute Current Visit: Yes (2) Abdominal pain SNOMED Code(s): 91495572 Code(s): R10.9 - UNSPECIFIED ABDOMINAL PAIN Status: Acute Current Visit: Yes (3) NSAID overdose SNOMED Code(s): 193634784 Code(s): T39.391A - POISONING BY OTH NONSTEROID ANTI-INFLAM DRUGS, ACC, INIT Status: Acute Current Visit: Yes - Problem List Review Problem List Initiated/Reviewed/Updated: Yes - Plan Plan:: 20 y/o M admitted for PARAMJIT likely ATN due to NSAIDS overdose 3 days ago 1. ATN -Creatinine stable, may take several days to trend down -Continue IV fluids -Abdominal pain is better, will decrease Dilaudid dose -Monitor BMP in the morning -Renal ultrasound shows bilateral echogenicity within renal parenchyma suggestive of chronic kidney disease. -Avoid nephrotoxic medications 2. Epididymitis -Improving -cont Rocephin 1 g IV and doxycycline 100 mg p.o. twice daily -Scrotal USG pending -STD screening pending results VTE prophylaxis; SCDs and ambulation CODE STATUS: Full code Dispo: 1 to 2 days pending improvement
[2020-04-29] MEDS ORDERED: Lactated Ringers 1,000 ML IV ONE (13:45)
[2020-04-30] MEDS: Lactated Ringers 1,000 ML IV SCH ×4 (03:40→20:23)
[2020-04-30] MEDS: HYDROmorphone 1 MG/ML Syringe IVPUSH PRN ×3 (05:19→17:24)
[2020-04-30 06:53] LABS: CARBON DIOXIDE,CO2 30.6 mmol/L (21.0-32.0); POTASSIUM,K 4.3 mmol/L (3.5-5.1)
[2020-04-30] MEDS: Pantoprazole 40 MG in Sodium Chloride 0.9% 10 ML IV SCH (08:33)
[2020-04-30] MEDS: Doxycycline 100 MG Cap PO SCH ×2 (08:34→20:24)
[2020-04-30] MEDS: Acetaminophen 325 MG Tab PO PRN ×2 (08:35→18:16)
[2020-04-30] MEDS: cefTRIAXone 1 GM in Premix Bag 1 BAG IV SCH (08:38)
[2020-04-30] MEDS: Ondansetron 4 MG/2 ML SDV IVPUSH PRN (09:32)
--- NOTE | 2020-04-30 11:52 | PCM.PN ---
- General Info Date of Service: 04/30/20 - Review of Systems Systems Review Comment:: patient reports nausea and abdominal pain. slight improvement of symptoms - Patient Data Vitals - Most Recent: Last Vital Signs Temp 36.4 C 04/30/20 08:40 Pulse 44 L 04/30/20 08:40 Resp 14 04/30/20 08:40 BP 137/74 04/30/20 08:40 Pulse Ox 99 04/30/20 08:40 Weight - Most Recent: 88.768 kg I&O - Last 24 Hours: Intake & Output 04/29/20 04/30/20 04/30/20 22:59 06:59 14:59 Intake Total 4523 4550 Output Total 980 Balance 4523 3570 Lab Results Last 24 Hours: Laboratory Results - last 24 hr 04/30/20 04/30/20 Range/Units 06:25 06:25 WBC 7.13 (4.0-11.0) K/uL RBC 4.47 L (4.50-5.90) M/uL Hgb 13.5 (13.0-17.0) g/dL Hct 39.0 (38.0-50.0) % MCV 87.2 (80.0-98.0) fL MCH 30.2 (27.0-32.0) pg MCHC 34.6 (31.0-37.0) g/dL RDW Std Deviation 39.2 (28.0-62.0) fl RDW Coeff of Cristina 12 (11.0-15.0) % Plt Count 154 (150-400) K/uL MPV 11.50 (7.40-12.00) fL Neut % (Auto) 62.6 (48.0-80.0) % Lymph % (Auto) 23.7 (16.0-40.0) % [place] % (Auto) 11.2 (0.0-15.0) % Eos % (Auto) 2.1 (0.0-7.0) % Baso % (Auto) 0.4 (0.0-1.5) % Neut # (Auto) 4.5 (1.4-5.7) K/uL Lymph # (Auto) 1.7 (0.6-2.4) K/uL [place] # (Auto) 0.8 (0.0-0.8) K/uL Eos # (Auto) 0.2 (0.0-0.7) K/uL Baso # (Auto) 0.0 (0.0-0.1) K/uL Nucleated RBC % 0.0 /100WBC Nucleated RBCs # 0 K/uL Sodium 146 (136-148) mmol/L Potassium 4.3 (3.5-5.1) mmol/L Chloride 108 H (98-107) mmol/L Carbon Dioxide 30.6 (21.0-32.0) mmol/L BUN 19 H (7.0-18.0) mg/dL Creatinine 2.1 H (0.8-1.3) mg/dL Est Cr Clr Drug Dosing 60.56 mL/min Estimated GFR (MDRD) 39.7 ml/min Glucose 96 (74-106) mg/dL Calcium 8.7 (8.5-10.1) mg/dL Med Orders - Current: Current Medications Acetaminophen (Tylenol) 650 mg PO Q4H PRN PRN Reason: Pain (Mild 1-3)/fever Last Admin: 04/30/20 08:35 Dose: 650 mg Documented by: Albuterol/Ipratropium (Duoneb 3.0-0.5 Mg/3 Ml) 3 ml NEB Q4HRRT PRN PRN Reason: Shortness Of Breath/wheezing Doxycycline Hyclate (Vibramycin) 100 mg PO Q12HR [facility] Last Admin: 04/30/20 08:34 Dose: 100 mg Documented by: Hydromorphone HCl (Dilaudid) 1 mg IVPUSH Q4H PRN PRN Reason: Pain Last Admin: 04/30/20 09:38 Dose: 1 mg Documented by: Lactated Ringer's (Ringers, Lactated) 1,000 mls @ 200 mls/hr IV ASDIRECTED [facility] Last Admin: 04/30/20 08:34 Dose: 200 mls/hr Documented by: Pantoprazole Sodium 40 mg/ (Sodium Chloride) 10 mls @ 300 mls/hr IV DAILY [facility] Last Admin: 04/30/20 08:33 Dose: 300 mls/hr Documented by: Ceftriaxone Sodium/Dextrose 1 (gm/ Premix) 50 mls @ 100 mls/hr IV Q24H [facility] Last Admin: 04/30/20 08:38 Dose: 100 mls/hr Documented by: Ondansetron HCl (Zofran) 4 mg IVPUSH Q4H PRN PRN Reason: Nausea/Vomiting Last Admin: 04/30/20 09:32 Dose: 4 mg Documented by: Sodium Chloride (Saline Flush) 10 ml FLUSH ASDIRECTED PRN PRN Reason: Keep Vein Open Last Admin: 04/27/20 08:14 Dose: 10 ml Documented by: Sodium Chloride (Saline Flush) 2.5 ml FLUSH ASDIRECTED PRN PRN Reason: Keep Vein Open Last Admin: 04/27/20 08:14 Dose: 2.5 ml Documented by: Discontinued Medications Hydromorphone HCl (Dilaudid) 1 mg IVPUSH Q4H PRN PRN Reason: Abdominal Pain Last Admin: 04/27/20 13:24 Dose: 1 mg Documented by: Hydromorphone HCl (Dilaudid) 1 mg IVPUSH Q3H PRN PRN Reason: Abdominal Pain Last Admin: 04/27/20 17:08 Dose: 1 mg Documented by: Hydromorphone HCl (Dilaudid) 0.5 mg IVPUSH ONETIME ONE Stop: 04/27/20 19:01 Last Admin: 04/27/20 18:57 Dose: 0.5 mg Documented by: Hydromorphone HCl (Dilaudid) 1 mg IVPUSH Q2H PRN PRN Reason: Pain Last Admin: 04/28/20 03:25 Dose: 1 mg Documented by: Hydromorphone HCl (Dilaudid) 1 mg IVPUSH Q2H PRN PRN Reason: Pain Last Admin: 04/29/20 09:16 Dose: 1 mg Documented by: Sodium Chloride (Normal Saline) 1,000 mls @ 999 mls/hr IV .Bolus ONE Stop: 04/27/20 08:49 Last Admin: 04/27/20 08:14 Dose: 999 mls/hr Documented by: Lactated Ringer's (Ringers, Lactated) 1,000 mls @ 999 mls/hr IV .BOLUS ONE Stop: 04/29/20 14:45 Last Admin: 04/29/20 13:53 Dose: 999 mls/hr Documented by: Morphine Sulfate (Morphine) 4 mg IVPUSH ONETIME ONE Stop: 04/27/20 07:50 Last Admin: 04/27/20 08:14 Dose: 4 mg Documented by: Morphine Sulfate (Morphine) 2 mg IVPUSH Q3H PRN PRN Reason: Pain (severe 7-10) Stop: 04/28/20 11:49 Morphine Sulfate (Morphine) 2 mg IVPUSH Q3H PRN PRN Reason: Pain (severe 7-10) Stop: 04/28/20 11:49 Ondansetron HCl (Zofran) 4 mg IVPUSH ONETIME ONE Stop: 04/27/20 07:50 Last Admin: 04/27/20 08:14 Dose: 4 mg Documented by: - Exam General: Alert, Moderate Distress Neck: Supple Lungs: Clear to Auscultation, Normal Respiratory Effort Cardiovascular: Regular Rate, Regular Rhythm GI/Abdominal Exam: Soft, Non-Tender, No Distention (Male) Exam: Normal Inspection Extremities: Non-Tender, No Pedal Edema Skin: Warm, Dry, Intact Neurological: No New Focal Deficit Sepsis Event Note - Evaluation Sepsis Screening Result: No Definite Risk - Focused Exam Vital Signs: Vital Signs Temp Pulse Resp BP BP Pulse Ox 04/30/20 08:40 36.4 C 44 L 14 137/74 99 04/30/20 04:00 36.6 C 47 L 16 140/71 98 04/30/20 01:00 36.6 C 50 L 18 143/70 H 98 - Problem List Review Problem List Initiated/Reviewed/Updated: Yes - Plan Plan:: 20 y/o M admitted for PARAMJIT likely ATN due to NSAIDS overdose 3 days ago 1. ATN -Creatinine 2.1 today -Continue IV fluids -Avoid nephrotoxic medications 2. Epididymitis -Improving -cont Rocephin 1 g IV and doxycycline 100 mg p.o. twice daily -Scrotal US unremarkable -STD screening pending results VTE prophylaxis; SCDs and ambulation CODE STATUS: Full code Dispo: likely home tomorrow
[2020-05-01] MEDS: HYDROmorphone 1 MG/ML Syringe IVPUSH PRN (00:54)
[2020-05-01] MEDS: Lactated Ringers 1,000 ML IV SCH ×2 (01:05→06:13)
[2020-05-01] MEDS: Acetaminophen 325 MG Tab PO PRN (05:09)
[2020-05-01 06:32] LABS: CARBON DIOXIDE,CO2 30.4 mmol/L (21.0-32.0)
[2020-05-01] MEDS: Doxycycline 100 MG Cap PO SCH (08:32)
[2020-05-01] MEDS: Pantoprazole 40 MG in Sodium Chloride 0.9% 10 ML IV SCH (08:32)
[2020-05-01] MEDS: cefTRIAXone 1 GM in Premix Bag 1 BAG IV SCH (08:35)
--- NOTE | 2020-05-01 08:59 | PCM.DCSUM1 ---
Discharge Summary - Hospital Course Brief History: Patient is 20 y/o M with PMH of undiagnosed mood disorder, who comes in with generalized abdominal pain, N/V since yesterday, Patient states that he overdosed on anti-inflammatory medication 15 tablets 3 days ago, as he was feeling depressed. He also admits to using meth and marijuana. Currently he denies suicidal ideation, he has no plans of killing himself or other people, he has no hallucinations. CT abdomen was performed without contrast and had good visualization of his appendix, which did not suggest appendicitis. Labs reveled PARAMJIT with creatinine of 2.0. Patient was admitted for renal insufficiency likely secondary to NSAID overdose. Patient states that he has an appointment at a psychiatry clinic at [facility] for his mood disorder. He states he has episodes of extremely elevated mood followed by depressive episodes. States being sober brings his depressive thoughts and thats why he abuses drugs. Diagnosis: Stroke: No - Discharge Data Discharge Date: 05/01/20 Discharge Disposition: Home, Self-Care 01 Condition: Stable - Referral to Home Health Primary Care Physician: [facility] - Discharge Diagnosis/Problem(s) (1) ATN (acute tubular necrosis) SNOMED Code(s): 28242962 ICD Code: N17.0 - ACUTE KIDNEY FAILURE WITH TUBULAR NECROSIS Status: Acute Current Visit: Yes (2) Abdominal pain SNOMED Code(s): 09770937 ICD Code: R10.9 - UNSPECIFIED ABDOMINAL PAIN Status: Acute Current Visit: Yes (3) NSAID overdose SNOMED Code(s): 088008932 ICD Code: T39.391A - POISONING BY OTH NONSTEROID ANTI-INFLAM DRUGS, ACC, INIT Status: Acute Current Visit: Yes (4) Epididymitis SNOMED Code(s): 74279026 ICD Code: N45.1 - EPIDIDYMITIS Status: Acute Current Visit: Yes - Patient Summary/Data Hospital Course: Admission diagnoses: ATN Abdominal pain Discharge diagnosis: ATN Abdominal pain Epididymitis Other PMH: Poly substance abuse Simone was admitted secondary to abdominal pain likely associated with ATN. Patient had taken large dose of ibuprofen 3 days prior to admission. PARAMJIT noted on admission CT of the abdomen revealed no acute process. Ultrasound of bilateral kidneys showed chronic kidney disease with parenchymal thinning. He was treated with aggressive fluid hydration as well as Dilaudid for pain control. On the second day of admission he complained of scrotal pain which was relieved with elevation. Ultrasound of scrotum was unremarkable. He was treated with Rocephin and doxycycline. He has had intermittent vomiting with doxycycline. Today doxycycline was stopped and he was given 1 g azithromycin and Rocephin was completed. He will need no further antibiotics going home GC urine testing continues to pend I did notify him that I would notify him if they were positive otherwise he could assume they were negative he did not hear from me. He was counseled on not using any type of NSAIDs due to his kidney concerns. Today creatinine has dropped to 1.8. He is to refrain from using any type of recreational drugs and he should follow-up with PCP in 1 week. He is to return to the ER if abdominal pain fevers chills or scrotal pain return. - Patient Instructions Diet: Regular Diet as Tolerated Activity: As Tolerated, No Strenuous Activities Showering/Bathing: May Shower Notify Provider of: Fever, Increased Pain, Swelling and Redness, Drainage, Nausea and/or Vomiting Other/Special Instructions: Do NOT take any NSAIDs with risk of injurying kidneys (Aleve, Motrin, Ibuprofen, Advil, Naproxen) - Discharge Plan *PRESCRIPTION DRUG MONITORING PROGRAM REVIEWED*: Not Applicable *COPY OF PRESCRIPTION DRUG MONITORING REPORT IN PATIENT ANDREEA: Not Applicable Home Medications: Home Meds Acetaminophen [Tylenol] 650 mg PO Q4H PRN tablet 05/01/20 [Rx] Patient Handouts: Acute Kidney Injury, Adult, Accidental Drug Poisoning, Adult, Epididymitis, Chronic Kidney Disease, Adult, [id number] Referrals: Sonny Valerio MD [Physician] - 05/04/20 2:15 pm - Discharge Summary/Plan Comment DC Time >30 min.: No - Patient Data Vitals - Most Recent: Last Vital Signs Temp 98.6 F 05/01/20 07:30 Pulse 54 L 05/01/20 07:30 Resp 16 05/01/20 07:30 BP 111/42 L 05/01/20 07:30 Pulse Ox 97 05/01/20 07:30 Weight - Most Recent: 88.768 kg I&O - Last 24 hours: Intake & Output 04/30/20 05/01/20 05/01/20 22:59 06:59 14:59 Intake Total 3861 3520 60 Output Total 2980 3150 Balance 881 370 60 Lab Results - Last 24 hrs: Laboratory Results - last 24 hr 05/01/20 05/01/20 Range/Units 06:05 06:05 WBC 7.00 (4.0-11.0) K/uL RBC 4.48 L (4.50-5.90) M/uL Hgb 13.3 (13.0-17.0) g/dL Hct 38.9 (38.0-50.0) % MCV 86.8 (80.0-98.0) fL MCH 29.7 (27.0-32.0) pg MCHC 34.2 (31.0-37.0) g/dL RDW Std Deviation 38.7 (28.0-62.0) fl RDW Coeff of Cristina 12 (11.0-15.0) % Plt Count 156 (150-400) K/uL MPV 11.30 (7.40-12.00) fL Neut % (Auto) 61.3 (48.0-80.0) % Lymph % (Auto) 25.1 (16.0-40.0) % [place] % (Auto) 11.3 (0.0-15.0) % Eos % (Auto) 1.7 (0.0-7.0) % Baso % (Auto) 0.6 (0.0-1.5) % Neut # (Auto) 4.3 (1.4-5.7) K/uL Lymph # (Auto) 1.8 (0.6-2.4) K/uL [place] # (Auto) 0.8 (0.0-0.8) K/uL Eos # (Auto) 0.1 (0.0-0.7) K/uL Baso # (Auto) 0.0 (0.0-0.1) K/uL Nucleated RBC % 0.0 /100WBC Nucleated RBCs # 0 K/uL Sodium 142 (136-148) mmol/L Potassium 4.0 (3.5-5.1) mmol/L Chloride 104 (98-107) mmol/L Carbon Dioxide 30.4 (21.0-32.0) mmol/L BUN 16 (7.0-18.0) mg/dL Creatinine 1.8 H (0.8-1.3) mg/dL Est Cr Clr Drug Dosing 70.65 mL/min Estimated GFR (MDRD) 47.4 ml/min Glucose 96 (74-106) mg/dL Calcium 8.6 (8.5-10.1) mg/dL Med Orders - Current: Current Medications Acetaminophen (Tylenol) 650 mg PO Q4H PRN PRN Reason: Pain (Mild 1-3)/fever Last Admin: 05/01/20 05:09 Dose: 650 mg Documented by: Albuterol/Ipratropium (Duoneb 3.0-0.5 Mg/3 Ml) 3 ml NEB Q4HRRT PRN PRN Reason: Shortness Of Breath/wheezing Doxycycline Hyclate (Vibramycin) 100 mg PO Q12HR [facility] Last Admin: 05/01/20 08:32 Dose: 100 mg Documented by: Lactated Ringer's (Ringers, Lactated) 1,000 mls @ 200 mls/hr IV ASDIRECTED [facility] Last Admin: 05/01/20 06:13 Dose: 200 mls/hr Documented by: Pantoprazole Sodium 40 mg/ (Sodium Chloride) 10 mls @ 300 mls/hr IV DAILY [facility] Last Admin: 05/01/20 08:32 Dose: 300 mls/hr Documented by: Ceftriaxone Sodium/Dextrose 1 (gm/ Premix) 50 mls @ 100 mls/hr IV Q24H [facility] Last Admin: 05/01/20 08:35 Dose: 100 mls/hr Documented by: Ondansetron HCl (Zofran) 4 mg IVPUSH Q4H PRN PRN Reason: Nausea/Vomiting Last Admin: 04/30/20 09:32 Dose: 4 mg Documented by: Sodium Chloride (Saline Flush) 10 ml FLUSH ASDIRECTED PRN PRN Reason: Keep Vein Open Last Admin: 04/27/20 08:14 Dose: 10 ml Documented by: Sodium Chloride (Saline Flush) 2.5 ml FLUSH ASDIRECTED PRN PRN Reason: Keep Vein Open Last Admin: 04/27/20 08:14 Dose: 2.5 ml Documented by: Discontinued Medications Hydromorphone HCl (Dilaudid) 1 mg IVPUSH Q4H PRN PRN Reason: Abdominal Pain Last Admin: 04/27/20 13:24 Dose: 1 mg Documented by: Hydromorphone HCl (Dilaudid) 1 mg IVPUSH Q3H PRN PRN Reason: Abdominal Pain Last Admin: 04/27/20 17:08 Dose: 1 mg Documented by: Hydromorphone HCl (Dilaudid) 0.5 mg IVPUSH ONETIME ONE Stop: 04/27/20 19:01 Last Admin: 04/27/20 18:57 Dose: 0.5 mg Documented by: Hydromorphone HCl (Dilaudid) 1 mg IVPUSH Q2H PRN PRN Reason: Pain Last Admin: 04/28/20 03:25 Dose: 1 mg Documented by: Hydromorphone HCl (Dilaudid) 1 mg IVPUSH Q2H PRN PRN Reason: Pain Last Admin: 04/29/20 09:16 Dose: 1 mg Documented by: Hydromorphone HCl (Dilaudid) 1 mg IVPUSH Q4H PRN PRN Reason: Pain Last Admin: 05/01/20 00:54 Dose: 1 mg Documented by: Sodium Chloride (Normal Saline) 1,000 mls @ 999 mls/hr IV .Bolus ONE Stop: 04/27/20 08:49 Last Admin: 04/27/20 08:14 Dose: 999 mls/hr Documented by: Lactated Ringer's (Ringers, Lactated) 1,000 mls @ 999 mls/hr IV .BOLUS ONE Stop: 04/29/20 14:45 Last Admin: 04/29/20 13:53 Dose: 999 mls/hr Documented by: Morphine Sulfate (Morphine) 4 mg IVPUSH ONETIME ONE Stop: 04/27/20 07:50 Last Admin: 04/27/20 08:14 Dose: 4 mg Documented by: Morphine Sulfate (Morphine) 2 mg IVPUSH Q3H PRN PRN Reason: Pain (severe 7-10) Stop: 04/28/20 11:49 Morphine Sulfate (Morphine) 2 mg IVPUSH Q3H PRN PRN Reason: Pain (severe 7-10) Stop: 04/28/20 11:49 Ondansetron HCl (Zofran) 4 mg IVPUSH ONETIME ONE Stop: 04/27/20 07:50 Last Admin: 04/27/20 08:14 Dose: 4 mg Documented by: - Exam General: Reports: Alert, Oriented, Cooperative, No Acute Distress Lungs: Reports: Clear to Auscultation, Normal Respiratory Effort Cardiovascular: Reports: Regular Rate, Regular Rhythm GI/Abdominal Exam: Normal Bowel Sounds, Soft, Non-Tender Back Exam: Reports: Normal Inspection, Full Range of Motion Extremities: Normal Inspection, Normal Range of Motion, Non-Tender, No Pedal Edema Neurological: Reports: No New Focal Deficit Psy/Mental Status: Reports: Alert, Normal Affect, Normal Mood
[2020-05-01] MEDS: Ondansetron 4 MG/2 ML SDV IVPUSH PRN (09:32)
[2020-05-01] MEDS ORDERED: Azithromycin 1,000 MG in Sodium Chloride 0.9% 500 ML IV ONE (10:30)
--- NOTE | 2020-05-01 11:05 | US ---
EXAM DATE: 04/29/20 PATIENT'S AGE: 20 Patient: JHONATAN GOOD TRACK [facility] Site . Site : 2000 Study: [id number]-7/5/2021 9:52:06 AM Ordering Physician: Nura Sherman Final Report: INDICATION: Testicular pain TECHNIQUE: Ultrasound of the scrotum and contents. Sonographic rivera scale images were obtained with spectral and color Doppler waveform and spectral waveform analysis of the testicles. COMPARISON: None FINDINGS: Right testicle: 4.7 centimeter x 3.2 centimeter x 2.4 centimeter. Normal echotexture. No masses. No suspicious calcifications. Normal arterial and venous and blood flow using Doppler and spectral waveform analysis. Left testicle: 4.8 centimeter x 3.2 centimeter x 2.4 centimeter. Normal echotexture. No masses. No suspicious calcifications. Normal arterial and venous and blood flow using Doppler and spectral waveform analysis. Epididymis: Unremarkable bilaterally. Normal blood flow. Other: No sign of hydrocele. No sign of varicocele. Scrotal wall is normal. IMPRESSION: Unremarkable ultrasound of the scrotum and contents. Dictated by Gwyn Bullard MD @ Apr 28 2020 12:21PM Signed by: Gwyn Bullard MD @04/28/2020 12:21:29 PM (Electronic Signature) Report Signed by Proxy. PILY
[2020-05-01 13:03] LABS: C.TRACHOMATIS BY TMA Negative (Negative); N.GONORRHOEAE BY TMA Negative (Negative)
== END 2020-05-01 13:45 | disposition home or self-care (01) | DRG 917 ==
LOC: MW.ED 07:42 → MW.MS 11:00 → OBSVTOIN 04-29 14:57 → MW.MS 04-29 17:14
PROVIDERS: ADMIT Student in an Organized Health Care Education/Training Program; ATTEND Student in an Organized Health Care Education/Training Program
DX: T39.391A Poisoning by other nonsteroidal anti-inflammatory drugs [NSAID], accidental (unintentional), initial encounter (principal); T39 Poisoning by, adverse effect of and underdosing of nonopioid analgesics, antipyretics and antirheumatics; N17.0 Acute kidney failure with tubular necrosis; R10.31 Right lower quadrant pain; N45.1 Epididymitis; F19.10 Other psychoactive substance abuse, uncomplicated; F15.10 Other stimulant abuse, uncomplicated; F12.10 Cannabis abuse, uncomplicated; F17.200 Nicotine dependence, unspecified, uncomplicated; N18.9 Chronic kidney disease, unspecified; F39 Unspecified mood [affective] disorder; F17.210 Nicotine dependence, cigarettes, uncomplicated; Z20.822 Contact with and (suspected) exposure to COVID-19; N14.1 Nephropathy induced by other drugs, medicaments and biological substances
CPT/HCPCS: 36415 ×3; 74176; 76700; 76870; 80048 ×2; 80053; 80143; 80305; 80307; 82436; 82570; 83605; 83690; 83735; 84100; 84133; 84300; 85025 ×3; 87491; 87591; 87635; 93976; 96365; 96375 ×3; 96376 ×3; 99285; A9270 ×6; C9113 ×3; G0378 ×4; J0696 ×2; J1170 ×14; J2270; J2405; J7030; J7120 ×11; 96374; 99284; J0456; J7040; U0002

== ENCOUNTER 2021-05-22 18:59 | Emergency (ER) | payer OTHER ==
[2021-05-22 20:24] LABS: BLOOD UREA NITROGEN,BUN 17 mg/dL (7.0-18.0); CARBON DIOXIDE,CO2 24.3 mmol/L (21.0-32.0); CHLORIDE,CL 103 mmol/L (98-107); GLUCOSE RANDOM 106 mg/dL (74-106); POTASSIUM,K 3.7 mmol/L (3.5-5.1); SODIUM,NA 138 mmol/L (136-148)
== END 2021-05-22 20:43 | disposition home or self-care (01) ==
LOC: MW.ED 18:59
DX: B00.89 Other herpesviral infection (principal); L08.9 Local infection of the skin and subcutaneous tissue, unspecified
CPT/HCPCS: 36415; 80053; 83605; 85025; 99283

== ENCOUNTER 2024-06-11 04:14 | Emergency (ER) | payer SELFPAY ==
[2024-06-11] MEDS ORDERED: Sodium Chloride 0.9% 2.5 ML Syringe FLUSH PRN (04:29)
[2024-06-11] MEDS ORDERED: Sodium Chloride 0.9% 10 ML Syringe FLUSH PRN (04:29)
[2024-06-11 04:35] LABS: BASOPHILS PERCENT AUTO 0.9 % (0.0-1.0); EOSINOPHILS ABSOLUTE AUTO 0.22 K/uL (0.00-0.45); EOSINOPHILS PERCENT AUTO 2.1 % (0.0-6.0); HEMATOCRIT 45.9 % (42.0-52.0); HEMOGLOBIN 16.6 g/dL (14.0-18.0); IMMATURE GRAN ABSOLUTE AUTO 0.03 K/uL (0.00-0.05); IMMATURE GRAN PERCENT AUTO 0.3 % (0.0-0.4); LYMPHOCYTES ABSOLUTE AUTO 4.65 K/uL (1.00-4.80); MEAN CORPUSCULAR HGB CONC 36.2 g/dL (32.0-36.0); MEAN PLATELET VOLUME 11.3 fL (9.4-12.4); MONOCYTES ABSOLUTE AUTO 0.86 K/uL (0.00-0.80); MONOCYTES PERCENT AUTO 8.1 % (0.0-8.0); NEUTROPHILS ABSOLUTE AUTO 4.71 K/uL (1.80-7.70); NEUTROPHILS PERCENT AUTO 44.6 % (41.0-71.0); PLATELET COUNT,PLT 200 K/uL (150-400); RED BLOOD CELL COUNT 5.53 M/uL (4.52-5.90); WHITE BLOOD CELL COUNT,WBC 10.57 K/uL (3.9-11.3)
[2024-06-11] MEDS: Sodium Chloride 0.9% 1,000 ML IV SCH (05:05)
[2024-06-11] MEDS: LORazepam 2 MG/ML SDV IVPUSH ONE (05:05)
[2024-06-11 05:11] LABS: BLOOD UREA NITROGEN,BUN 15 mg/dL (7.0-18.0); CALCIUM 9.2 mg/dL (8.5-10.1); CARBON DIOXIDE,CO2 20.5 mmol/L (21.0-32.0); CHLORIDE,CL 98 mmol/L (98-107); CREATININE 1.2 mg/dL (0.8-1.3); GLUCOSE RANDOM 126 mg/dL (74-106); MAGNESIUM 2.1 mg/dL (1.8-2.4); POTASSIUM,K 3.2 mmol/L (3.5-5.1); SODIUM,NA 135 mmol/L (136-148)
[2024-06-11 05:12] LABS: ESTIMATED GFR 86 mL/min (>60)
[2024-06-11] MEDS: HYDROmorphone 1 MG/ML Syringe IVPUSH ONE (05:39)
== END 2024-06-11 06:54 | disposition home or self-care (01) ==
LOC: MW.ED 04:14
DX: E87.6 Hypokalemia (principal); R07.9 Chest pain, unspecified; N18.9 Chronic kidney disease, unspecified; Z87.891 Personal history of nicotine dependence
CPT/HCPCS: 36415; 71045; 80048; 83735; 84484; 85025; 93005; 96361; 96374; 96375; 99285; J1171; J2060; J7030; 99283